=== PATIENT | female | born 1980 | race Caucasian/White ===

== ENCOUNTER 2016-09-10 12:50 | Emergency (ER) | payer SELFPAY ==
[~2016-09-10] VITALS: Ht 154.9 cm; Wt 43.9 kg
[2016-09-10 13:02] VITALS: BP 119/86; PULSE 104; RESP 18; TEMP 98.3; O2SAT 100
[2016-09-10 13:11] LABS: BLOOD, URINE LARGE (NEG); GLUCOSE,URINE 100 mg/dL (NEG); KETONE, URINE 40 mg/dL (NEG)
[2016-09-10 13:12] LABS: NITRITE,URINE POS (NEG)
[2016-09-10 13:21] LABS: METHOD OF COLLECTION CLEAN CATCH; URINE COLOR AMBER (YELLW/STRAW)
[2016-09-10 13:22] LABS: RBC, URINE INNUM /hpf (0-3)
[2016-09-10 13:23] LABS: BACTERIA, URINE FEW /hpf; COMMENT (UR) CULTURE INDICATED; CULTURE IF INDICATED CULTURE INDICATED; SQUAMOUS EPITHELIAL CELL URINE 0-5 /hpf (0-5)
[2016-09-10] MEDS ORDERED: CIPR-9 PO (13:57)
[2016-09-10] MEDS ORDERED: TRAM50TA PO (13:57)
--- NOTE | 2016-09-10 14:00 | PD ---
HPI Chief Complaint: Complaint Time Seen by Provider: 13:07 Travel History International Travel<30 days: No Contact w/Intl Traveler<30days: No Traveled to known affect area: No History of Present Illness HPI The patient was seen and examined in the presence of the nurse. This patient has history of interstitial cystitis and is vacationing from [place]. She reports hematuria. She feels like a sensation of razor blades when urinating. She's had a complete hysterectomy. Severity is moderate. Duration 2 days. PFSH Past Medical History Medical History: Denies Significant Hx Genitourinary: Yes (INTERSTITIAL CYSTITIS) Kidney Stones: Yes Renal Failure: Yes ?: Not Past Surgical History Hysterectomy: Yes Social History Alcohol Use: No Tobacco Use: No Substance Use: No Allergies-Medications (Allergen,Severity, Reaction): Coded Allergies: Naprosyn (Verified Allergy, Intermediate, GI UPSET, 09/10/16) Nubain (Verified Allergy, Intermediate, GI UPSET, 09/10/16) Reported Meds & Prescriptions Reported Meds & Active Scripts Active Tramadol (Tramadol HCl) 50 Mg Tab 50 Mg PO Q6H PRN Cipro (Ciprofloxacin HCl) 500 Mg Tab 500 Mg PO BID Review of Systems General / Constitutional: No: Fever HENT: No: Headaches Cardiovascular: No: Chest Pain or Discomfort Respiratory: No: Cough Physical Exam Narrative GASTROINTESTINAL: Abdomen soft, non-tender, nondistended. Positive bowel sounds. No hepato-splenomegaly, or palpable masses. No guarding. SKIN: Focused skin assessment reveals no rash or ulcers. Skin is warm and dry. Palpation shows no induration or nodules. : External urethral opening is inflamed but no active bleeding noted No foreign body seen Data Data Last Documented VS Vital Signs Date Time Temp Pulse Resp B/P Pulse Ox O2 Delivery O2 Flow Rate FiO2 09/10/16 13:02 98.3 104 18 119/86 100 Orders Urinalysis - C+S If Indicated (09/10/16 12:56) Urine Culture (09/10/16 13:08) Labs Laboratory Tests Test 09/10/16 13:08 Urine Collection Type CLEAN CATCH Urine Color SAMY Urine Turbidity MARKED Urine pH 8.0 Urine Specific [place] 1.014 Urine Protein 100 mg/dL Urine Glucose (UA) 100 mg/dL Urine Ketones 40 mg/dL Urine Occult Blood LARGE Urine Nitrite POS Urine Bilirubin NEG Urine Leukocyte Esterase LARGE Urine RBC INNUM /hpf Urine WBC 25-49 /hpf Urine WBC Clumps OCC Urine Squamous Epithelial 0-5 /hpf Cells Urine Amorphous Sediment FEW Urine Bacteria FEW /hpf Microscopic Urinalysis Comment CULTURE INDICATED Urine Collection Time 1308 MDM Medical Decision Making Medical Screen Exam Complete: Yes Emergency Medical Condition: Yes Medical Record Reviewed: Yes Differential Diagnosis UTI, hematuria, interstitial cystitis flare Narrative Course I have reviewed the patient's electronic medical record. Urinalysis shows innumerable red cells but also some clumps of white cells and leukocyte esterase Covering her with 5 days of Cipro but doubt this is infectious in origin Wrote her some tramadol as well She will need to follow-up with her urologist She is going home in 2 days Diagnosis Primary Impression: Hematuria due to chronic interstitial cystitis Additional Instructions: Follow-up with your urologist The patient was warned about potential sedation for the medications they will receive on prescription. Med/Other Pt SpecificInfo: Prescription(s) given Scripts Tramadol 50 Mg Tab50 Mg PO Q6H PRN (PAIN) #15 TAB Ref 0 Prov:Aris Hopson MD 09/10/16 Ciprofloxacin (Cipro)500 Mg She396 Mg PO BID #10 TAB Ref 0 Prov:Aris Hopson MD 09/10/16 Disposition: 01 DISCHARGE HOME Condition: Stable Aris Hopson MD Sep 10, 2016 14:00
== END 2016-09-10 14:09 | disposition home or self-care (01) ==
LOC: PHED 12:50
DX: N30.11 Interstitial cystitis (chronic) with hematuria (principal); B96.20 Unspecified Escherichia coli [E. coli] as the cause of diseases classified elsewhere
CPT/HCPCS: 81001; 87077; 87086; 87186; 99284